=== PATIENT | male | born 1970 | race Caucasian/White ===

== ENCOUNTER → 2025-08-09 06:43 | Outpatient (REF) | payer BC, SELFPAY | LOC: HWRAD 06:43 | PROVIDERS: ATTENDING PHYSICIAN Internal Medicine Hematology & Oncology; FAMILY PHYSICIAN Family Medicine | DX: D64.9 Anemia, unspecified (principal); D69.6 Thrombocytopenia, unspecified; R04.0 Epistaxis | CPT/HCPCS: 76700 ==

== ENCOUNTER 2025-09-04 06:26 | Day surgery (SDC) | payer BC, SELFPAY | END 2025-09-04 12:10 | disposition home or self-care (01) | LOC: GI 06:26 | PROVIDERS: ATTENDING PHYSICIAN Internal Medicine Gastroenterology | DX: Z12.11 Encounter for screening for malignant neoplasm of colon (principal); K63.5 Polyp of colon; Z86.0100 Personal history of colon polyps, unspecified | CPT/HCPCS: 45385; 88305 ==